=== PATIENT | male | born 1995 | race Caucasian/White ===

== ENCOUNTER 2016-09-02 00:58 | Emergency (ER) | payer OTHER ==
[~2016-09-02] VITALS: Ht 198.1 cm; Wt 149.7 kg
[~2016-09-02 00:58] MED LIST: CLARITIN10 MG PO; KEFLEX500 MG PO; MEDROL DOSEPAK4 MG PO; MOTRIN600 MG PO; MOTRIN800 MG PO; NKHM
== END 2016-09-02 02:08 | disposition home or self-care (01) ==
LOC: ED 00:58
DX: S96.912A Strain of unspecified muscle and tendon at ankle and foot level, left foot, initial encounter (principal); Z91.040 Latex allergy status; X58.XXXA Exposure to other specified factors, initial encounter; Y93.9 Activity, unspecified; Y92.9 Unspecified place or not applicable; Y99.9 Unspecified external cause status

== ENCOUNTER 2017-11-30 09:08 | Emergency (ER) | payer OTHER ==
[~2017-11-30] VITALS: Ht 198.1 cm; Wt 161.0 kg
[2017-11-30 09:30] LABS: HEMATOCRIT 38.4 % (42.0-52.0); HEMOGLOBIN 13.1 g/dl (14.0-18.0); MEAN CELL VOLUME 82.2 fl (80.0-94.0); MEAN CORPUSCULAR HGB 28.1 pg (27.0-31.0); MEAN CORPUSCULAR HGB CONC 34.1 g/dl (33.0-37.0); MEAN PLATELET VOLUME 9.5 fl (9.6-12.3); PLATELET COUNT AUTOMATED 227 10*3/uL (130-400); RED BLOOD COUNT 4.67 10*6/uL (4.50-5.90); RED CELL DISTRI WIDTH 12.9 % (0-14.5); WHITE BLOOD COUNT 5.7 10*3/uL (4.8-10.8)
[2017-11-30 09:39] LABS: ALBUMIN 3.9 gm/dl (3.1-4.5); ALKALINE PHOSPHATASE 79 U/L (45-117); BUN 13 mg/dl (7-24); CHLORIDE 105 mmol/L (98-107); CREATININE 1.02 mg/dL (0.70-1.30); SGOT/AST 64 IU/L (3-35); SGPT/ALT 87 U/L (12-78); SODIUM 139 mmol/L (136-145); TOTAL PROTEIN 7.5 gm/dL (6.4-8.2)
[2017-11-30 09:53] LABS: ATYPICAL LYMPHS 12 % (0-0); PLATELET SUFFICIENCY NORMAL (NORMAL); TOTAL CELLS COUNTED 100 #CELLS
[2017-11-30] MEDS ORDERED: PREDNISONE20 M1 PO (10:09)
== END 2017-11-30 11:00 | disposition home or self-care (01) ==
LOC: ED 09:08
PROVIDERS: Nurse Practitioner Family
DX: B27.80 Other infectious mononucleosis without complication (principal)

== ENCOUNTER → 2021-04-11 | Outpatient (CLI) | payer OTHER ==
[~2021-04-11] MED LIST changes: +PREDNISONE20 M1 PO
== END | disposition home or self-care (01) ==
LOC: COVID19 15:48
PROVIDERS: ATTEND Internal Medicine
DX: U07.1 COVID-19 (principal)

== ENCOUNTER 2022-07-26 21:36 | Emergency (ER) | payer SELFPAY | END 2022-07-26 22:28 | disposition home or self-care (01) | LOC: ED 21:36 | DX: H61.23 Impacted cerumen, bilateral (principal) ==

== ENCOUNTER 2022-08-09 20:40 | Emergency (ER) | payer SELFPAY ==
[~2022-08-09] VITALS: Ht 198.1 cm; Wt 145.1 kg
== END 2022-08-09 23:01 | disposition home or self-care (01) ==
LOC: ED 20:40
DX: S96.911A Strain of unspecified muscle and tendon at ankle and foot level, right foot, initial encounter (principal); W10.9XXA Fall (on) (from) unspecified stairs and steps, initial encounter; Y93.89 Activity, other specified; Y92.89 Other specified places as the place of occurrence of the external cause; Y99.8 Other external cause status